=== PATIENT | female | born 1985 | race African-American/Black ===

== ENCOUNTER 2021-04-15 20:45 | Day surgery (SDC) | payer OTHER ==
[2021-04-15 21:40] VITALS: BMI 37.4
[2021-04-15] MEDS ORDERED: hydrALAZINE 20 MG/ML VIAL SLOW IVP PRN (21:50)
== END 2021-04-15 22:05 | disposition home or self-care (01) ==
LOC: CSHLD/OP 20:45
PROVIDERS: ATTEND Family Medicine
DX: O99.891 Other specified diseases and conditions complicating pregnancy (principal); M79.18 Myalgia, other site; O09.43 Supervision of pregnancy with grand multiparity, third trimester; O09.523 Supervision of elderly multigravida, third trimester; Z3A.32 32 weeks gestation of pregnancy
CPT/HCPCS: 99282

== ENCOUNTER 2021-05-19 09:07 | Day surgery (SDC) | payer OTHER ==
[2021-05-19 09:05] VITALS: BMI 38.6
[2021-05-19] MEDS ORDERED: hydrALAZINE 20 MG/ML VIAL SLOW IVP PRN (09:31)
[2021-05-19 10:07] LABS: Bilirubin Neg (Negative); Blood, Urine Negative (Negative); Clarity Clear (Clear); Glucose, Urine (Dipstick) 100 mg/dL (Negative); Ketone, Urine 5 mg/dL (Negative); Leukocyte Negative (Negative); Nitrite Negative (Negative); Protein, Urine (Dipstick) 15 mg/dl (Neg-Trace); Urobilinogen Normal mg/dL (Less than 2)
== END 2021-05-19 11:55 | disposition home or self-care (01) ==
LOC: CSHLD/OP 09:07
PROVIDERS: ATTEND Family Medicine
DX: O99.891 Other specified diseases and conditions complicating pregnancy (principal); R10.2 Pelvic and perineal pain; R39.11 Hesitancy of micturition; O09.523 Supervision of elderly multigravida, third trimester; Z3A.36 36 weeks gestation of pregnancy
CPT/HCPCS: 81003

== ENCOUNTER 2021-05-20 03:55 | Inpatient (IN) | payer OTHER ==
[2021-05-20] MEDS ORDERED: Promethazine HCl 25 MG/ML VIAL IM PRN ×3 (04:18→07:18)
[2021-05-20] MEDS ORDERED: Ibuprofen 800 MG TAB PO PRN (04:18)
[2021-05-20] MEDS ORDERED: Ondansetron PF 4 MG/2 ML Vial IVP PRN ×4 (04:18→13:48)
[2021-05-20] MEDS ORDERED: Butorphanol Tartrate 1 MG/ML VIAL SLOW IVP PRN (04:18)
[2021-05-20] MEDS ORDERED: Lidocaine 1% (PF) 30 ML VIAL SC PRN (04:18)
[2021-05-20] MEDS ORDERED: HYDROcodone/Acetaminophen 5/325 mg Tablet PO PRN ×2 (04:18)
[2021-05-20] MEDS ORDERED: Acetaminophen 500 MG TAB PO PRN (04:18)
[2021-05-20] MEDS ORDERED: hydrALAZINE 20 MG/ML VIAL SLOW IVP PRN ×2 (04:18→13:48)
[2021-05-20 04:35] VITALS: BMI 38.6
[2021-05-20] MEDS ORDERED: Lactated Ringer's 1,000 ML IV SCH ×2 (05:00)
[2021-05-20] MEDS ORDERED: NS w/ Oxytocin 30 units 500 ML IV SCH ×2 (05:00→13:48)
[2021-05-20] MEDS ORDERED: Penicillin G Potassium 5 MILL.UNITS VIAL ONE (05:24)
[2021-05-20] MEDS ORDERED: Fentanyl 2 mcg/Bup 0.1% Cadd 100 ML ONE (05:25)
[2021-05-20 05:49] LABS: Hemoglobin 10.7 g/dL (12.0-15.5); Mean Corpuscular HGB CONC 32.4 g/dL (32.0-36.0); Mean Corpuscular Hemoglobin 27.2 pg (27.0-33.0); Mean Platelet Volume 10.1 fl (7.4-10.4); Platelet Count 345 10x3/uL (150-450); RBC Distribution Width 13.2 % (11.5-14.5); Red Blood Cell (RBC) Count 3.93 10x6/uL (3.90-5.03); White Blood Cell (WBC) Count 6.9 10x3/uL (3.5-10.5)
[2021-05-20] MEDS ORDERED: Naloxone HCl 0.4 mg/ml Vial IVP PRN ×4 (07:18)
[2021-05-20] MEDS ORDERED: diphenhydrAMINE 50 MG/ML VIAL IVP PRN ×2 (07:18)
[2021-05-20] MEDS ORDERED: Hydrocerin (Eucerin) Cream 120 gm Jar TOP PRN ×2 (07:18)
[2021-05-20] MEDS ORDERED: diphenhydrAMINE 50 MG/ML VIAL IM PRN (07:18)
[2021-05-20] MEDS ORDERED: Bupivacaine 0.25% 10 ML VIAL EPIDURAL PRN (07:18)
[2021-05-20] MEDS ORDERED: Zolpidem Tartrate 5 MG TAB PO PRN (07:18)
[2021-05-20] MEDS ORDERED: Promethazine HCl 25 MG SUPP PR PRN (07:18)
[2021-05-20] MEDS ORDERED: ePHEDrine Sulfate 50 MG/10 ML VIAL SLOW IVP PRN (07:18)
[2021-05-20] MEDS ORDERED: Lactated Ringer's 500 ML IV PRN (07:18)
[2021-05-20] MEDS ORDERED: diphenhydrAMINE 25 MG CAP PO PRN ×2 (07:18→13:48)
[2021-05-20] MEDS ORDERED: Acetaminophen 325 MG TAB PO PRN (07:18)
[2021-05-20] MEDS ORDERED: Fentanyl 2 mcg/Bupivacaine 0.1% Cassette 100 ML EPIDURAL SCH (07:30)
[2021-05-20] MEDS ORDERED: Fentanyl 5 mcg/Bupivacaine 0.075% Cassette 100 ML EPIDURAL SCH (07:30)
[2021-05-20] MEDS ORDERED: Communication Order-Pharmacy FS SCH ×3 (07:30)
[2021-05-20 07:53] LABS: Hep B Surf Ag Non-Reactive S/CO (NonReactive)
[2021-05-20 08:05] LABS: SARS-CoV-2 NAA Rapid Test Not Detected (NotDetected)
[2021-05-20 08:45] LABS: HBSAg Index 0.18 S/CO (0-0.99)
[2021-05-20] MEDS ORDERED: Methylergonovine 0.2 MG/ML VIAL ONE (08:50)
[2021-05-20] MEDS ORDERED: Misoprostol 200 MCG TAB ONE (08:50)
[2021-05-20 09:21] LABS: Syphilis Antibody Nonreactive (Nonreactive); Syphilis Antibody Index 0.03 S/CO (<1.00 Non-Reactive)
[2021-05-20] MEDS: NS w/ Oxytocin 30 units 500 ML IV SCH ×2 (10:35→11:19)
[2021-05-20] MEDS ORDERED: Milk Of Magnesia 30 ML UDCUP PO PRN (13:48)
[2021-05-20] MEDS ORDERED: Boostrix 0.5 ML (Tdap) VIAL IM ONE (13:48)
[2021-05-20] MEDS ORDERED: Lanolin Ointment 7 GM TUBE TOP PRN (13:48)
[2021-05-20] MEDS ORDERED: Bisacodyl 10 MG SUPP PR PRN (13:48)
[2021-05-20] MEDS: HYDROcodone/Acetaminophen 5/325 mg Tablet PO PRN ×2 (14:54→21:44)
[2021-05-20] MEDS: Ibuprofen 800 MG TAB PO SCH ×2 (14:56→21:37)
[2021-05-20] MEDS: Ferrous Sulfate 325 MG TAB PO SCH (19:55)
[2021-05-20] MEDS: Docusate Calcium (SURFAK) 240 MG CAP PO SCH (21:38)
[2021-05-21 08:08] VITALS: BP 103/56; TEMP 98.1
[2021-05-21] MEDS ORDERED: Prenatal Vitamin 1 TAB PO SCH (09:00)
[2021-05-21] MEDS: Ferrous Sulfate 325 MG TAB PO SCH (09:13)
[2021-05-21] MEDS: Ibuprofen 800 MG TAB PO SCH (09:17)
[2021-05-21] MEDS: Docusate Calcium (SURFAK) 240 MG CAP PO SCH (09:18)
[2021-05-21] MEDS: HYDROcodone/Acetaminophen 5/325 mg Tablet PO PRN (13:05)
== END 2021-05-21 15:20 | disposition home or self-care (01) | DRG 807 ==
LOC: CSHLD/OP 03:55 → CSHLD 04:44 → CSHPP 13:15
PROVIDERS: ADMIT Family Medicine; ATTEND Family Medicine
PROC: 10E0XZZ Delivery of Products of Conception, External Approach (ICD-10-PCS; principal; 2021-05-20)
DX: O80 Encounter for full-term uncomplicated delivery (principal); Z37.0 Single live birth; Z3A.37 37 weeks gestation of pregnancy; Z20.822 Contact with and (suspected) exposure to COVID-19
CPT/HCPCS: 36415; 36416; 81003; 85027; 86780; 86850; 86900; 86901; 87340; J2540; J2590; U0002

== ENCOUNTER 2021-11-06 14:07 | Emergency (ER) | payer OTHER ==
[2021-11-06] MEDS ORDERED: Dexamethasone 4 mg/ml Vial ONE (15:39)
== END 2021-11-06 16:57 | disposition home or self-care (01) ==
LOC: CSHERS 14:07
DX: J02.9 Acute pharyngitis, unspecified (principal); J45.909 Unspecified asthma, uncomplicated
CPT/HCPCS: 87081; 87430; 96372; 99283; J1100

== ENCOUNTER 2023-03-06 18:39 | Emergency (ER) | payer OTHER ==
[2023-03-06] MEDS ORDERED: Acetaminophen 500 MG TAB ONE (19:08)
[2023-03-06 20:00] LABS: SARS-CoV-2 NAA Rapid Test DETECTED (NotDetected)
== END 2023-03-06 21:09 | disposition home or self-care (01) ==
LOC: CSHERS 18:39
DX: U07.1 COVID-19 (principal); J45.909 Unspecified asthma, uncomplicated
CPT/HCPCS: 99283

== ENCOUNTER 2023-05-13 20:26 | Emergency (ER) | payer OTHER ==
[2023-05-13 21:41] LABS: SARS-CoV-2 NAA Rapid Test DETECTED (NotDetected)
== END 2023-05-13 22:16 | disposition home or self-care (01) ==
LOC: CSHERS 20:26
DX: U07.1 COVID-19 (principal)
CPT/HCPCS: 71045